=== PATIENT | female | born 1965 | race Caucasian/White ===

== ENCOUNTER → 2024-01-22 13:50 | Outpatient (REF) | payer BC, SELFPAY | LOC: MRI 3T 13:50 | PROVIDERS: ATTENDING PHYSICIAN Orthopaedic Surgery Hand Surgery | DX: M25.511 Pain in right shoulder (principal) | CPT/HCPCS: 73221 ==

== ENCOUNTER → 2024-02-25 19:09 | Outpatient (REF) | payer BC, SELFPAY | LOC: WDC 19:09 | PROVIDERS: ATTENDING PHYSICIAN Obstetrics & Gynecology | DX: Z12.31 Encounter for screening mammogram for malignant neoplasm of breast (principal) | CPT/HCPCS: 77063; 77067 ==

== ENCOUNTER → 2025-03-07 19:32 | Outpatient (REF) | payer BC, SELFPAY | LOC: WDC 19:32 | PROVIDERS: ATTENDING PHYSICIAN Obstetrics & Gynecology; FAMILY PHYSICIAN Student in an Organized Health Care Education/Training Program | DX: Z12.31 Encounter for screening mammogram for malignant neoplasm of breast (principal) | CPT/HCPCS: 77063; 77067 ==